=== PATIENT | female | born 1965 | race Native Hawaiian/Other Pacific Islander ===

== ENCOUNTER 2020-06-01 09:21 | Outpatient (CLI) | payer OTHER | END 2020-06-01 19:54 | disposition home or self-care (01) | LOC: MAMMO 09:21 | PROVIDERS: ATTEND Nurse Practitioner Family | DX: Z12.31 Encounter for screening mammogram for malignant neoplasm of breast (principal) ==

== ENCOUNTER 2021-06-14 10:06 | Outpatient (CLI) | payer OTHER | END 2021-06-14 18:51 | disposition home or self-care (01) | LOC: MAMMO 10:06 | PROVIDERS: ATTEND Nurse Practitioner Family | DX: Z12.31 Encounter for screening mammogram for malignant neoplasm of breast (principal) ==